=== PATIENT | male | born 1960 | race Caucasian/White ===

== ENCOUNTER → 2020-09-09 | Outpatient (CLI) | payer OTHER ==
[2019-05-08 11:15] VITALS: BP 125/80
[~2020-09-09] MED LIST: ASCO100T4 PO; CHON400C PO; CIPR500T94 PO; METR500T PO; MULT-735 PO; OMEP40CA45 PO; SILD50TA PO
--- NOTE | 2020-09-09 15:28 | KCIC ---
CT SCREENING FOR CORONARY ARTERY History: Reason: Cardiovascular screening, mixed hyperlipidemia. / Spl. Instructions: / History: Technique: With retrospective electrocardiogram gating axial reconstructed noncontrast images of the chest at the level of the coronary arteries was performed. Images were post processed on workstation and calcium score calculated using the modified Agatston Janowitz protocol. Exposure: One or more of the following individualized dose reduction techniques were utilized for thi s examination: 1. Automated exposure control 2. Adjustment of the mA and/or kV according to patient size 3. Use of iterative reconstruction technique. Comparison: May 06, 2019 Findings: Total coronary calcium score is 13.4. This is a mild plaque burden and increased cardiovasc ular disease risk. This is based on the calcium score of 0 of the left main coronary artery, 13.4 of the left anterior descending artery, score of 0 of the left circumflex artery and score of 0 of the r ight coronary artery. Noncoronary findings: 4 mm left lower lobe pulmonary nodule (series 4 image 38), unchanged compared to prior. Small right m iddle lobe anterior pleural-based nodules, several are unchanged compared to prior although several n ot included in the previous imaging. Mild gynecomastia. IMPRESSION: 1. Increased cardiovascular disease risk. Mild coronary artery plaque burden. 2. Calcium score 13.4. 3. Small pulmonary nodules. Recommend one-year follow-up if high risk. Electronically signed by: Arsenio Rojas DO (09/09/2020 3:25 PM) [id number]
== END ==
LOC: KCIC CT 08:04
PROVIDERS: ATTEND Family Medicine
DX: I25.10 Atherosclerotic heart disease of native coronary artery without angina pectoris (principal); E78.2 Mixed hyperlipidemia; R91.1 Solitary pulmonary nodule
CPT/HCPCS: 75571